=== PATIENT | male | born 1990 | race Hispanic/Latino ===

== ENCOUNTER 2019-11-07 08:35 | Emergency (ER) | payer OTHER ==
[2019-11-07] MEDS ORDERED: DIAZEPAM 5 MG TABLET ONE (09:58)
[2019-11-07] MEDS ORDERED: KETOROLAC TROMETHAMINE 60 MG/2 ML VIAL ONE (09:58)
[2019-11-07] MEDS ORDERED: LIDOCAINE 5% TOPICAL PATCH TP ONE (09:58)
== END 2019-11-07 10:59 | disposition home or self-care (01) ==
LOC: EDH 08:35
DX: S33.5XXA Sprain of ligaments of lumbar spine, initial encounter (principal); Z72.0 Tobacco use; X58.XXXA Exposure to other specified factors, initial encounter; Y93.89 Activity, other specified; Y92.89 Other specified places as the place of occurrence of the external cause; Y99.8 Other external cause status
CPT/HCPCS: 99283; J1885

== ENCOUNTER 2022-12-05 04:00 | Emergency (ER) | payer OTHER ==
[~2022-12-05] VITALS: Ht 162.6 cm; Wt 58.1 kg
[2022-12-05] MEDS ORDERED: ONDANSETRON 4MG INJ IVP ONE (04:30)
[2022-12-05] MEDS ORDERED: 0.9%NACL 1000ML 1,000 ML IV ONE (04:30)
[2022-12-05 04:35] LABS: BASOPHILS # (AUTO) 0.09 K/uL (0.00-0.20); BASOPHILS % (AUTO) 0.6 % (0.0-5.0); EOSINOPHILS # (AUTO) 0.17 K/uL (0.00-0.70); EOSINOPHILS % (AUTO) 1.2 % (0.0-8.0); HEMATOCRIT 45.2 % (42-54); IMMATURE GRANULOCYTE ABSOLUTE 0.07 K/uL (0-1); LYMPHOCYTES # (AUTO) 1.7 K/uL (1.0-4.8); MEAN CORPUSCULAR HEMOGLOBIN 30.6 pg (27.0-33.0); MEAN CORPUSCULAR VOLUME 87.6 fL (79-99); MONOCYTES # (AUTO) 0.7 K/uL (0.1-1.0); MONOCYTES % (AUTO) 5.2 % (3.0-13.0); NEUTROPHILS # (AUTO) 11.5 K/uL (1.8-7.7); NEUTROPHILS % (AUTO) 80.5 % (40.0-77.0); PLATELET COUNT (AUTO) 284 K/uL (130-400); RED BLOOD CELL COUNT(AUTO) 5.16 MIL/uL (4.50-6.20); RED CELL DISTRIBUTION WIDTH 12.8 % (11.0-15.5); WHITE BLOOD COUNT (AUTO) 14.3 K/uL (4.8-10.8)
[2022-12-05 04:45] LABS: CREATININE 1.1 mg/dL (0.5-1.5); POTASSIUM 3.6 mmol/L (3.5-5.1)
[2022-12-05 04:49] LABS: ALBUMIN 4.2 g/dL (3.5-5.0); BILIRUBIN,TOTAL 0.5 mg/dL (0.2-1.0); TOTAL PROTEIN, SERUM 7.7 g/dL (6.0-8.3)
[2022-12-05 04:54] LABS: APPEARANCE,URINE TURBID (CLEAR); BILIRUBIN,URINE NEGATIVE (NEGATIVE); COLOR,URINE LIGHT-YELLOW (YELLOW); GLUCOSE, URINE (UA) NEGATIVE (NEGATIVE); KETONES,URINE 20 mg/dL (NEGATIVE); LEUKOCYTE ESTERASE ,URINE NEGATIVE Leu/uL (NEGATIVE); NITRATE,URINE NEGATIVE (NEGATIVE); OCCULT BLOOD,URINE NEGATIVE (NEGATIVE); PH,URINE 8.5 (5.0-8.0); PROTEIN,URINE 20 mg/dL (NEGATIVE); UROBILINOGEN,URINE 0.2 mg/dL (0.2-1.0)
[2022-12-05 04:55] LABS: ADD UA MICROSCOPIC YES
[2022-12-05] MEDS ORDERED: HALOPERIDOL INJ 5 MG/ML VIAL IV SCH (05:00)
[2022-12-05] MEDS ORDERED: HALOPERIDOL INJ 5 MG/ML VIAL ONE (05:00)
[2022-12-05 05:02] LABS: BACTERIA,URINE RARE /HPF (None Seen)
[2022-12-05 05:13] LABS: AMPHET/METH SCREEN,URINE NEGATIVE (NEGATIVE); BARBITURATE SCREEN, URINE NEGATIVE (NEGATIVE); BENZODIAZEPINES SCREEN,URINE NEGATIVE (NEGATIVE); CANNABINOID SCREEN,URINE POSITIVE (NEGATIVE); COCAINE SCREEN,URINE NEGATIVE (NEGATIVE); OPIATE SCREEN,URINE NEGATIVE (NEGATIVE); PHENCYCLIDINE SCREEN,URINE NEGATIVE (NEGATIVE)
[2022-12-05] MEDS ORDERED: KETOROLAC 15MG/ML VIAL (15MG/ML) ONE (06:07)
[2022-12-05] MEDS ORDERED: KETOROLAC 15MG/ML VIAL (15MG/ML) IV ONE (06:30)
[2022-12-05] MEDS ORDERED: NAPR-1192 PO (09:33)
[2022-12-05] MEDS ORDERED: METO-296 PO (09:33)
[2022-12-05] MEDS ORDERED: FAMO-136 PO (09:33)
[2022-12-05 09:51] VITALS: BP 119/64; PULSE 74; RESP 16; O2SAT 100
== END 2022-12-05 10:17 | disposition home or self-care (01) ==
LOC: EDH 04:00
DX: R10.9 Unspecified abdominal pain (principal); Z87.442 Personal history of urinary calculi; F12.90 Cannabis use, unspecified, uncomplicated
CPT/HCPCS: 99285; 74176; 96374; 96361; 96375; 80053; 80305; 83690; 85025; 36415; 81001; J7030; J1630; J2405; J1885